=== PATIENT | male | born 1955 | race Caucasian/White ===

== ENCOUNTER 2018-05-31 12:08 | Inpatient (IN) | payer OTHER ==
[2018-05-31 15:09] VITALS: BMI 29.2
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
[2018-05-31] MEDS ORDERED: P-EPHED 60MG/TRIPROLIDI 2.5MG TABLET PO PRN (16:11)
[2018-05-31] MEDS ORDERED: IBUPROFEN 400 MG TABLET (FP) PO PRN (16:11)
[2018-05-31] MEDS ORDERED: guaiFENesin/D-METHORPHAN HB 10 ML UNIT-DOSE CUPS PO PRN (16:11)
[2018-05-31] MEDS ORDERED: MENTHOL/PHENOL 1 EACH UD MM PRN (16:11)
[2018-05-31] MEDS ORDERED: LOPERAMIDE HCL 2 MG CAPSULE PO PRN (16:11)
[2018-05-31] MEDS ORDERED: MAGNESIUM HYDROX 2400MG/30ML ORAL SUSPENSION 30 ML CUP PO PRN (16:11)
[2018-05-31] MEDS ORDERED: diazePAM 5 MG TABLET PO ONE (17:00)
[2018-05-31] MEDS ORDERED: METHADONE HCL 10 MG TABLET (FOR DETOX USE ONLY) PO ONE ×2 (17:15→23:00)
[2018-05-31] MEDS: metFORMIN HCL 500 MG TABLET (FP) PO SCH (17:29)
[2018-05-31] MEDS: ALBUTEROL SO4 8 GM HFA INHALER IH PRN ×2 (19:04→22:13)
[2018-05-31] MEDS ORDERED: MELATONIN 5 MG TABLETS PO PRN (22:00)
[2018-05-31] MEDS: diazePAM 5 MG TABLET PO SCH (22:10)
[2018-05-31] MEDS: THIAMINE HCL 100 MG TABLET (FP) PO SCH (22:10)
[2018-05-31] MEDS: ATORVASTATIN CA 40 MG TABLET (FP) PO SCH (22:11)
[2018-05-31] MEDS: cloNIDine HCL 0.1 MG TABLET PO SCH (22:11)
[2018-05-31] MEDS: RANITIDINE HCL 150 MG TABLET (FP) PO SCH (22:11)
[2018-05-31] MEDS: MONTELUKAST NA 10 MG TABLET PO SCH (22:51)
[2018-05-31] MEDS: MAG HYDROX/AL HYDROX/SIMETH 30 ML UNIT-DOSE CUP PO PRN (23:46)
[2018-06-01] MEDS: diazePAM 5 MG TABLET PO PRN ×3 (03:29→17:22)
[2018-06-01] MEDS: ALBUTEROL SO4 8 GM HFA INHALER IH PRN ×2 (03:36→21:57)
[2018-06-01] MEDS: diazePAM 5 MG TABLET PO SCH ×3 (05:50→21:58)
[2018-06-01] MEDS: metFORMIN HCL 500 MG TABLET (FP) PO SCH ×2 (06:30→17:22)
[2018-06-01] MEDS: PATIENT'S OWN MEDICATION (NON-FORMULARY) (Omeprazole 20 MG) PO SCH (07:47)
[2018-06-01] MEDS ORDERED: COLLOIDAL OATMEAL 1 BAR EACH TP PRN (08:09)
[2018-06-01] MEDS ORDERED: NICOTINE POLACRILEX 2 MG GUM BUC PRN (09:59)
[2018-06-01] MEDS ORDERED: METHADONE HCL 10 MG TABLET (FOR DETOX USE ONLY) PO SCH (10:00)
[2018-06-01] MEDS: PRENATAL VITAMINS W/ FOLIC ACID TABLET (FP) PO SCH (10:26)
[2018-06-01] MEDS: NICOTINE 14 MG/24 HOURS TOPICAL PATCH TD SCH (10:27)
[2018-06-01] MEDS: RANITIDINE HCL 150 MG TABLET (FP) PO SCH ×2 (10:29→21:58)
[2018-06-01] MEDS: cloNIDine HCL 0.1 MG TABLET PO SCH ×2 (10:30→21:58)
[2018-06-01 10:31] LABS: HEMATOCRIT 35.2 % (35.4-49); HEMOGLOBIN 11.6 GM/dL (11.7-16.9); MCH 30.2 pg (25.7-33.7); MEAN CELL VOLUME 91.5 fl (80-96); MEAN PLT VOLUME 7.3 fl (7.5-11.1); PLATELET COUNT 244 K/MM3 (134-434); RBC 3.85 M/mm3 (4.00-5.60); RDW 13.2 % (11.9-15.9); WHITE BLOOD COUNT 13.4 K/mm3 (4.0-10.0)
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
[2018-06-01 11:04] LABS: ALBUMIN 3.4 g/dl (3.4-5.0); ALK PHOS 39 U/L (45-117); ANION GAP 12 MMOL/L (8-16); BILIRUBIN,TOTAL 1.4 mg/dL (0.2-1); BLOOD UREA NITROGEN 13 mg/dL (7-18); CALCIUM 8.1 mg/dL (8.5-10.1); CHLORIDE 96 mmol/L (98-107); CO2 29 mmol/L (21-32); CREATININE 1.1 mg/dL (0.55-1.3); GLUCOSE,RANDOM 90 mg/dL (74-106); POTASSIUM 4.2 mmol/L (3.5-5.1); SGOT/AST 16 U/L (15-37); SGPT/ALT 20 U/L (13-61); SODIUM 136 mmol/L (136-145)
[2018-06-01] MEDS: DULoxetine HCL 20 MG CAPSULE.DR (FP) PO SCH (11:43)
[2018-06-01] MEDS: PATIENT'S OWN MEDICATION (NON-FORMULARY) (Losartan/Hydrochlorothiazide [Losartan-Hctz 100- PO SCH (12:12)
[2018-06-01] MEDS: GABAPENTIN 300 MG CAPSULE (FP) PO SCH ×2 (12:14→22:02)
[2018-06-01 13:17] LABS: URINE APPEARANCE SLCLOUDY; URINE BILIRUBIN NEGATIVE (<2.0 mg/dL); URINE COLOR YELLOW; URINE GLUCOSE (UA) NEGATIVE (NEGATIVE); URINE KETONE NEGATIVE (NEGATIVE); URINE LEUK ESTERASE NEGATIVE (NEGATIVE); URINE NITRITE NEGATIVE (NEGATIVE); URINE PROTEIN NEGATIVE (NEGATIVE); URINE UROBILINOGEN NEGATIVE mg/dL (0.2-1.0)
--- NOTE | 2018-06-01 14:43 | PN ---
[facility] CIWA - CIWA Score Nausea/Vomitin-No Nausea/No Vomiting Muscle Tremors: 3 Anxiety: 3 Agitation: 3 Paroxysmal Sweats: 2 Orientation: 0-Oriented Tacttile Disturbances: 1-Very Mild Itch/Numbness Auditory Disturbances: 0-None Visual Disturbances: 0-None Headache: 0-None Present CIWA-Ar Total Score: 12 [facility] COWS - Scale Resting Pulse: 1= [place] 81-100 Sweatin=Flushed/Facial Moisture Restless Observation: 1= Difficult to Sit Still Pupil Size: 1= Pupils >than Normal Bone or Joint Aches: 1= Mild Discomfort Runny Nose/ Eye Tearin= Runny Nose/Eyes GI Upset > 30mins: 0= None Tremor Observation of Outstretched Hands: 1= Tremor [place], Not Seen Yawning Observation: 1= 1-2x During Session Anxiety or Irritability: 2=Irritable/Anxious Goose Flesh Skin: 0=Smooth Skin COWS Score: 12 S Progress Note (SOAP) Subjective: interrupted sleep, anxious, body aches Objective: 06/01/18 14:41 Vital Signs Temperature 100.0 F H 06/01/18 14:06 Pulse Rate 91 H 06/01/18 14:06 Respiratory Rate 18 06/01/18 14:06 Blood Pressure 125/74 06/01/18 14:06 O2 Sat by Pulse Oximetry (%) Laboratory Last Values WBC 13.4 K/mm3 (4.0-10.0) H 06/01/18 08:00 RBC 3.85 M/mm3 (4.00-5.60) L 06/01/18 08:00 Hgb 11.6 GM/dL (11.7-16.9) L 06/01/18 08:00 Hct 35.2 % (35.4-49) L 06/01/18 08:00 MCV 91.5 fl (80-96) 06/01/18 08:00 MCH 30.2 pg (25.7-33.7) 06/01/18 08:00 MCHC 33.0 g/dl (32.0-35.9) 06/01/18 08:00 RDW 13.2 % (11.9-15.9) 06/01/18 08:00 Plt Count 244 K/MM3 (134-434) 06/01/18 08:00 MPV 7.3 fl (7.5-11.1) L 06/01/18 08:00 Sodium 136 mmol/L (136-145) 06/01/18 08:00 Potassium 4.2 mmol/L (3.5-5.1) 06/01/18 08:00 Chloride 96 mmol/L (98-107) L 06/01/18 08:00 Carbon Dioxide 29 mmol/L (21-32) 06/01/18 08:00 Anion Gap 12 MMOL/L (8-16) 06/01/18 08:00 BUN 13 mg/dL (7-18) 06/01/18 08:00 Creatinine 1.1 mg/dL (0.55-1.3) 06/01/18 08:00 Creat Clearance w eGFR > 60 (>60) 06/01/18 08:00 POC Glucometer 116 UNITS (80-120) 06/01/18 05:52 Random Glucose 90 mg/dL (74-106) 06/01/18 08:00 Calcium 8.1 mg/dL (8.5-10.1) L 06/01/18 08:00 Total Bilirubin 1.4 mg/dL (0.2-1) H 06/01/18 08:00 AST 16 U/L (15-37) 06/01/18 08:00 ALT 20 U/L (13-61) 06/01/18 08:00 Alkaline Phosphatase 39 U/L (45-117) L 06/01/18 08:00 Total Protein 6.0 g/dl (6.4-8.2) L 06/01/18 08:00 Albumin 3.4 g/dl (3.4-5.0) 06/01/18 08:00 Urine Color Yellow 06/01/18 09:30 Urine Appearance Slcloudy 06/01/18 09:30 Urine pH 7.0 (5.0-8.0) 06/01/18 09:30 Ur Specific [place] 1.015 (1.010-1.035) 06/01/18 09:30 Urine Protein Negative (NEGATIVE) 06/01/18 09:30 Urine Glucose (UA) Negative (NEGATIVE) 06/01/18 09:30 Urine Ketones Negative (NEGATIVE) 06/01/18 09:30 Urine Blood Negative (NEGATIVE) 06/01/18 09:30 Urine Nitrite Negative (NEGATIVE) 06/01/18 09:30 Urine Bilirubin Negative (<2.0 mg/dL) 06/01/18 09:30 Urine Urobilinogen Negative mg/dL (0.2-1.0) 06/01/18 09:30 Ur Leukocyte Esterase Negative (NEGATIVE) 06/01/18 09:30 RPR Titer Nonreactive (NONREACTIVE) 06/01/18 08:00 repeat CBC Patient Aox3 no distress, anxious no adventitious breath sounds full ROM, ambulating in the unit Assessment: 06/01/18 14:42 withdrawal sx Plan: repeat CBC increase fluids continue detox continue to monitor
--- NOTE | 2018-06-01 14:46 | EKG ---
Test Reason : Blood Pressure : / mmHG Vent. Rate : 082 BPM Atrial Rate : 082 BPM P-R Int : 146 ms QRS Dur : 090 ms QT Int : 378 ms P-R-T Axes : 000 048 025 degrees QTc Int : 441 ms NORMAL SINUS RHYTHM NORMAL ECG NO PREVIOUS ECGS AVAILABLE Confirmed by MD Melani, Ravi ([id number]) on 06/01/2018 2:46:42 PM Referred By: Confirmed By:Ravi Polo MD
[2018-06-01] MEDS: MONTELUKAST NA 10 MG TABLET PO SCH (21:59)
[2018-06-01] MEDS: ATORVASTATIN CA 40 MG TABLET (FP) PO SCH (21:59)
[2018-06-01] MEDS ORDERED: PARoxetine HCL 20 MG TABLET (FP) PO SCH (22:00)
[2018-06-01] MEDS: ZOLPIDEM TARTRATE 10 MG TABLET (PARK CARE ONLY) PO PRN (22:02)
[2018-06-01] MEDS: THIAMINE HCL 100 MG TABLET (FP) PO SCH (22:50)
[2018-06-02] MEDS: diazePAM 5 MG TABLET PO PRN ×2 (03:53→17:42)
[2018-06-02] MEDS: MAGNESIUM CITRATE 300 ML BOTTLE PO PRN (05:54)
[2018-06-02] MEDS: metFORMIN HCL 500 MG TABLET (FP) PO SCH ×2 (06:23→16:30)
[2018-06-02] MEDS: PATIENT'S OWN MEDICATION (NON-FORMULARY) (Omeprazole 20 MG) PO SCH (06:43)
[2018-06-02] MEDS: METHADONE HCL 5 MG TABLET (FOR DETOX USE ONLY) PO SCH (10:17)
[2018-06-02] MEDS: GABAPENTIN 300 MG CAPSULE (FP) PO SCH ×2 (10:17→22:00)
[2018-06-02] MEDS: PRENATAL VITAMINS W/ FOLIC ACID TABLET (FP) PO SCH (10:17)
[2018-06-02] MEDS: PATIENT'S OWN MEDICATION (NON-FORMULARY) (Losartan/Hydrochlorothiazide [Losartan-Hctz 100- PO SCH (10:17)
[2018-06-02] MEDS: RANITIDINE HCL 150 MG TABLET (FP) PO SCH ×2 (10:17→21:59)
[2018-06-02] MEDS: DULoxetine HCL 20 MG CAPSULE.DR (FP) PO SCH (10:17)
[2018-06-02] MEDS: diazePAM 5 MG TABLET PO SCH ×2 (10:17→22:00)
[2018-06-02] MEDS: NICOTINE 14 MG/24 HOURS TOPICAL PATCH TD SCH (10:21)
[2018-06-02] MEDS: cloNIDine HCL 0.1 MG TABLET PO SCH ×2 (10:21→22:00)
[2018-06-02 10:34] LABS: BASO % 0.6 % (0-2.0); EOS % 1.3 % (0-4.5); HEMATOCRIT 35.4 % (35.4-49); HEMOGLOBIN 11.5 GM/dL (11.7-16.9); LYMPH % 8.3 % (8-40); MCH 29.5 pg (25.7-33.7); MCHC 32.4 g/dl (32.0-35.9); MEAN CELL VOLUME 91.1 fl (80-96); MEAN PLT VOLUME 7.4 fl (7.5-11.1); MONO % 6.1 % (3.8-10.2); NEUT % 83.7 % (42.8-82.8); PLATELET COUNT 242 K/MM3 (134-434); RBC 3.89 M/mm3 (4.00-5.60); RDW 13.1 % (11.9-15.9); WHITE BLOOD COUNT 13.5 K/mm3 (4.0-10.0)
--- NOTE | 2018-06-02 16:19 | PN ---
[facility] CIWA - CIWA Score Nausea/Vomitin Muscle Tremors: 3 Anxiety: 3 Agitation: 3 Paroxysmal Sweats: 3 Orientation: 0-Oriented Tacttile Disturbances: 0-None Auditory Disturbances: 0-None Visual Disturbances: 0-None Headache: 0-None Present CIWA-Ar Total Score: 14 [facility] COWS - Scale Resting Pulse: 1= [place] 81-100 Sweatin= Chills/Flushing Restless Observation: 3= Extraneous Movement Pupil Size: 0= Normal to Room Light Bone or Joint Aches: 2= Severe Diffuse Aches Runny Nose/ Eye Tearin= Runny Nose/Eyes GI Upset > 30mins: 2= Nausea/Diarrhea Tremor Observation of Outstretched Hands: 2= Slight Tremor Visible Yawning Observation: 0= None Anxiety or Irritability: 2=Irritable/Anxious Goose Flesh Skin: 0=Smooth Skin COWS Score: 15 [facility] Progress Note (SOAP) Subjective: Tremor, chills, diarrhea, headache, interrupted sleep Objective: 06/02/18 16:15 Last Vital Signs Temp Pulse Resp BP Pulse Ox 97.9 F 97 H 18 122/73 06/02/18 14:16 06/02/18 14:16 06/02/18 14:16 06/02/18 14:16 Laboratory Tests 05/31/18 05/31/18 06/01/18 16:21 17:23 05:52 WBC RBC Hgb Hct MCV MCH MCHC RDW Plt Count MPV Absolute Neuts (auto) Neutrophils % Lymphocytes % Monocytes % Eosinophils % Basophils % Nucleated RBC % Sodium Potassium Chloride Carbon Dioxide Anion Gap BUN Creatinine Creat Clearance w eGFR POC Glucometer 118 129 116 Random Glucose Calcium Total Bilirubin AST ALT Alkaline Phosphatase Total Protein Albumin Urine Color Urine Appearance Urine pH Ur Specific [place] Urine Protein Urine Glucose (UA) Urine Ketones Urine Blood Urine Nitrite Urine Bilirubin Urine Urobilinogen Ur Leukocyte Esterase RPR Titer 06/01/18 06/01/18 06/01/18 08:00 08:00 08:00 WBC 13.4 H RBC 3.85 L Hgb 11.6 L Hct 35.2 L MCV 91.5 MCH 30.2 MCHC 33.0 RDW 13.2 Plt Count 244 MPV 7.3 L Absolute Neuts (auto) Neutrophils % Lymphocytes % Monocytes % Eosinophils % Basophils % Nucleated RBC % Sodium 136 Potassium 4.2 Chloride 96 L Carbon Dioxide 29 Anion Gap 12 BUN 13 Creatinine 1.1 Creat Clearance w eGFR > 60 POC Glucometer Random Glucose 90 Calcium 8.1 L Total Bilirubin 1.4 H AST 16 ALT 20 Alkaline Phosphatase 39 L Total Protein 6.0 L Albumin 3.4 Urine Color Urine Appearance Urine pH Ur Specific [place] Urine Protein Urine Glucose (UA) Urine Ketones Urine Blood Urine Nitrite Urine Bilirubin Urine Urobilinogen Ur Leukocyte Esterase RPR Titer Nonreactive 06/01/18 06/01/18 06/02/18 09:30 16:24 05:46 WBC RBC Hgb Hct MCV MCH MCHC RDW Plt Count MPV Absolute Neuts (auto) Neutrophils % Lymphocytes % Monocytes % Eosinophils % Basophils % Nucleated RBC % Sodium Potassium Chloride Carbon Dioxide Anion Gap BUN Creatinine Creat Clearance w eGFR POC Glucometer 110 109 Random Glucose Calcium Total Bilirubin AST ALT Alkaline Phosphatase Total Protein Albumin Urine Color Yellow Urine Appearance Slcloudy Urine pH 7.0 Ur Specific [place] 1.015 Urine Protein Negative Urine Glucose (UA) Negative Urine Ketones Negative Urine Blood Negative Urine Nitrite Negative Urine Bilirubin Negative Urine Urobilinogen Negative Ur Leukocyte Esterase Negative RPR Titer 06/02/18 07:35 WBC 13.5 H RBC 3.89 L Hgb 11.5 L Hct 35.4 MCV 91.1 MCH 29.5 MCHC 32.4 RDW 13.1 Plt Count 242 MPV 7.4 L Absolute Neuts (auto) 11.3 H Neutrophils % 83.7 H Lymphocytes % 8.3 Monocytes % 6.1 Eosinophils % 1.3 Basophils % 0.6 Nucleated RBC % 0 Sodium Potassium Chloride Carbon Dioxide Anion Gap BUN Creatinine Creat Clearance w eGFR POC Glucometer Random Glucose Calcium Total Bilirubin AST ALT Alkaline Phosphatase Total Protein Albumin Urine Color Urine Appearance Urine pH Ur Specific [place] Urine Protein Urine Glucose (UA) Urine Ketones Urine Blood Urine Nitrite Urine Bilirubin Urine Urobilinogen Ur Leukocyte Esterase RPR Titer Labs reviewed: wbc 13.5 (was 13.4), total bilirubin 1.4 Assessment: 06/02/18 16:17 Withdrawal symptoms Noted with leukocytosis and elevated total bilirubin Plan: Continue detox Leukocytosis: asymptomatic, could be related to lung mass; repeat CBC, send urine c&s Elevated total bilirubin: repeat total bilirubin serum
[2018-06-02] MEDS: ACETAMINOPHEN 325 MG TABLET (FP) PO PRN (17:42)
[2018-06-02] MEDS: THIAMINE HCL 100 MG TABLET (FP) PO SCH (21:58)
[2018-06-02] MEDS: ALBUTEROL SO4 8 GM HFA INHALER IH PRN (21:58)
[2018-06-02] MEDS: MONTELUKAST NA 10 MG TABLET PO SCH (21:58)
[2018-06-02] MEDS: ATORVASTATIN CA 40 MG TABLET (FP) PO SCH (21:59)
[2018-06-02] MEDS: ZOLPIDEM TARTRATE 10 MG TABLET (PARK CARE ONLY) PO PRN (22:01)
[2018-06-03] MEDS: diazePAM 5 MG TABLET PO PRN ×2 (05:21→16:00)
[2018-06-03] MEDS: metFORMIN HCL 500 MG TABLET (FP) PO SCH ×2 (06:27→17:37)
[2018-06-03] MEDS: PATIENT'S OWN MEDICATION (NON-FORMULARY) (Omeprazole 20 MG) PO SCH (06:28)
[2018-06-03] MEDS: ALBUTEROL SO4 8 GM HFA INHALER IH PRN ×2 (09:56→22:08)
[2018-06-03] MEDS: METHADONE HCL 5 MG TABLET (FOR DETOX USE ONLY) PO SCH (10:23)
[2018-06-03] MEDS: diazePAM 5 MG TABLET PO SCH ×2 (10:24→22:02)
[2018-06-03] MEDS: GABAPENTIN 300 MG CAPSULE (FP) PO SCH ×2 (10:24→22:01)
[2018-06-03] MEDS: DULoxetine HCL 20 MG CAPSULE.DR (FP) PO SCH (10:25)
[2018-06-03] MEDS: cloNIDine HCL 0.1 MG TABLET PO SCH ×2 (10:25→22:01)
[2018-06-03] MEDS: PRENATAL VITAMINS W/ FOLIC ACID TABLET (FP) PO SCH (10:25)
[2018-06-03] MEDS: RANITIDINE HCL 150 MG TABLET (FP) PO SCH ×2 (10:25→22:02)
[2018-06-03] MEDS: PATIENT'S OWN MEDICATION (NON-FORMULARY) (Losartan/Hydrochlorothiazide [Losartan-Hctz 100- PO SCH (10:26)
[2018-06-03] MEDS: NICOTINE 14 MG/24 HOURS TOPICAL PATCH TD SCH (10:28)
[2018-06-03 14:23] LABS: BASO % 0.8 % (0-2.0); EOS % 1.7 % (0-4.5); HEMATOCRIT 33.8 % (35.4-49); LYMPH % 10.1 % (8-40); MCH 30.2 pg (25.7-33.7); MCHC 32.6 g/dl (32.0-35.9); MEAN CELL VOLUME 92.8 fl (80-96); MEAN PLT VOLUME 7.5 fl (7.5-11.1); MONO % 6.9 % (3.8-10.2); NEUT % 80.5 % (42.8-82.8); PLATELET COUNT 255 K/MM3 (134-434); RBC 3.64 M/mm3 (4.00-5.60); RDW 13.2 % (11.9-15.9); WHITE BLOOD COUNT 8.8 K/mm3 (4.0-10.0)
--- NOTE | 2018-06-03 14:23 | PN ---
[facility] Progress Note (SOAP) Subjective: Anxious, sweating, interrupted sleep. Patient requesting to stay longer on detox stating he wants to continue methadone. Patient aware that methadone protocol cannot be extended and service writer advisor encouraged him to speak with his counselor regarding inpatient rehab admission after completion of detox. Patient demanded that service writer advisor called his insurance company to request detox extension so that he can continue methadone. Patient told staff he coughed up phlegm which has scant amount of blood in it. Patient with h/o lung mass, asthma , chronic bronchitis and COPD. Objective: 06/03/18 14:22 Last Vital Signs Temp Pulse Resp BP Pulse Ox 96.9 F L 68 18 118/72 06/03/18 13:36 06/03/18 13:36 06/03/18 13:36 06/03/18 13:36 Laboratory Tests 05/31/18 05/31/18 06/01/18 16:21 17:23 05:52 WBC RBC Hgb Hct MCV MCH MCHC RDW Plt Count MPV Absolute Neuts (auto) Neutrophils % Lymphocytes % Monocytes % Eosinophils % Basophils % Nucleated RBC % Sodium Potassium Chloride Carbon Dioxide Anion Gap BUN Creatinine Creat Clearance w eGFR POC Glucometer 118 129 116 Random Glucose Calcium Total Bilirubin AST ALT Alkaline Phosphatase Total Protein Albumin Urine Color Urine Appearance Urine pH Ur Specific [place] Urine Protein Urine Glucose (UA) Urine Ketones Urine Blood Urine Nitrite Urine Bilirubin Urine Urobilinogen Ur Leukocyte Esterase RPR Titer 06/01/18 06/01/18 06/01/18 08:00 08:00 08:00 WBC 13.4 H RBC 3.85 L Hgb 11.6 L Hct 35.2 L MCV 91.5 MCH 30.2 MCHC 33.0 RDW 13.2 Plt Count 244 MPV 7.3 L Absolute Neuts (auto) Neutrophils % Lymphocytes % Monocytes % Eosinophils % Basophils % Nucleated RBC % Sodium 136 Potassium 4.2 Chloride 96 L Carbon Dioxide 29 Anion Gap 12 BUN 13 Creatinine 1.1 Creat Clearance w eGFR > 60 POC Glucometer Random Glucose 90 Calcium 8.1 L Total Bilirubin 1.4 H AST 16 ALT 20 Alkaline Phosphatase 39 L Total Protein 6.0 L Albumin 3.4 Urine Color Urine Appearance Urine pH Ur Specific [place] Urine Protein Urine Glucose (UA) Urine Ketones Urine Blood Urine Nitrite Urine Bilirubin Urine Urobilinogen Ur Leukocyte Esterase RPR Titer Nonreactive 06/01/18 06/01/18 06/02/18 09:30 16:24 05:46 WBC RBC Hgb Hct MCV MCH MCHC RDW Plt Count MPV Absolute Neuts (auto) Neutrophils % Lymphocytes % Monocytes % Eosinophils % Basophils % Nucleated RBC % Sodium Potassium Chloride Carbon Dioxide Anion Gap BUN Creatinine Creat Clearance w eGFR POC Glucometer 110 109 Random Glucose Calcium Total Bilirubin AST ALT Alkaline Phosphatase Total Protein Albumin Urine Color Yellow Urine Appearance Slcloudy Urine pH 7.0 Ur Specific [place] 1.015 Urine Protein Negative Urine Glucose (UA) Negative Urine Ketones Negative Urine Blood Negative Urine Nitrite Negative Urine Bilirubin Negative Urine Urobilinogen Negative Ur Leukocyte Esterase Negative RPR Titer 06/02/18 06/02/18 06/03/18 07:35 16:15 05:18 WBC 13.5 H RBC 3.89 L Hgb 11.5 L Hct 35.4 MCV 91.1 MCH 29.5 MCHC 32.4 RDW 13.1 Plt Count 242 MPV 7.4 L Absolute Neuts (auto) 11.3 H Neutrophils % 83.7 H Lymphocytes % 8.3 Monocytes % 6.1 Eosinophils % 1.3 Basophils % 0.6 Nucleated RBC % 0 Sodium Potassium Chloride Carbon Dioxide Anion Gap BUN Creatinine Creat Clearance w eGFR POC Glucometer 152 200 Random Glucose Calcium Total Bilirubin AST ALT Alkaline Phosphatase Total Protein Albumin Urine Color Urine Appearance Urine pH Ur Specific [place] Urine Protein Urine Glucose (UA) Urine Ketones Urine Blood Urine Nitrite Urine Bilirubin Urine Urobilinogen Ur Leukocyte Esterase RPR Titer Labs reviewed: Assessment: 06/03/18 14:22 Withdrawal symptoms Noted with leukocytosis and increased total bilirubin Plan: Continue detox Encouraged PO water intake Consider MMTP upon discharge as patient craves methadone Leukocytosis: asymptomatic; could be related to lung mass; repeat in progress, urine cx in progress Increased total bilirubin: repeat in progress Patient c/o blood tinged phlegm after coughing up phlegm: chest xray in AM
[2018-06-03] MEDS: ACETAMINOPHEN 325 MG TABLET (FP) PO PRN (19:44)
[2018-06-03] MEDS: MAG HYDROX/AL HYDROX/SIMETH 30 ML UNIT-DOSE CUP PO PRN (19:46)
[2018-06-03] MEDS ORDERED: ALBUTEROL SO4 2.5/IPRATROPIUM 0.5 INH SOL 3 ML VIAL.NEB. NEB ONE (21:05)
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
[2018-06-03] MEDS: THIAMINE HCL 100 MG TABLET (FP) PO SCH (22:02)
[2018-06-03] MEDS: ATORVASTATIN CA 40 MG TABLET (FP) PO SCH (22:02)
[2018-06-03] MEDS: ZOLPIDEM TARTRATE 10 MG TABLET (PARK CARE ONLY) PO PRN (22:02)
[2018-06-03] MEDS: MONTELUKAST NA 10 MG TABLET PO SCH (22:02)
[2018-06-03] MEDS: guaiFENesin 600 MG TABLET.ER (FP) PO SCH (23:35)
[2018-06-04] MEDS: ALBUTEROL SO4 8 GM HFA INHALER IH PRN (03:34)
[2018-06-04] MEDS ORDERED: hydrOXYzine PAMOATE 25 MG CAPSULE (FP) PO ONE (05:58)
[2018-06-04] MEDS: PATIENT'S OWN MEDICATION (NON-FORMULARY) (Omeprazole 20 MG) PO SCH (06:07)
[2018-06-04] MEDS: metFORMIN HCL 500 MG TABLET (FP) PO SCH ×2 (06:08→17:01)
[2018-06-04] MEDS: ALBUTEROL SO4 2.5/IPRATROPIUM 0.5 INH SOL 3 ML VIAL.NEB. NEB SCH ×4 (08:30→19:30)
[2018-06-04] MEDS ORDERED: METHADONE HCL 10 MG TABLET (FOR DETOX USE ONLY) PO SCH (10:00)
[2018-06-04] MEDS ORDERED: diazePAM 5 MG TABLET PO SCH (10:00)
[2018-06-04] MEDS: DULoxetine HCL 20 MG CAPSULE.DR (FP) PO SCH (10:17)
[2018-06-04] MEDS: RANITIDINE HCL 150 MG TABLET (FP) PO SCH ×2 (10:17→21:05)
[2018-06-04] MEDS: GABAPENTIN 300 MG CAPSULE (FP) PO SCH ×2 (10:17→21:04)
[2018-06-04] MEDS: guaiFENesin 600 MG TABLET.ER (FP) PO SCH ×2 (10:18→21:05)
[2018-06-04] MEDS: cloNIDine HCL 0.1 MG TABLET PO SCH ×2 (10:18→21:04)
[2018-06-04] MEDS: NICOTINE 14 MG/24 HOURS TOPICAL PATCH TD SCH (10:18)
[2018-06-04] MEDS: PATIENT'S OWN MEDICATION (NON-FORMULARY) (Losartan/Hydrochlorothiazide [Losartan-Hctz 100- PO SCH (10:18)
[2018-06-04] MEDS: PRENATAL VITAMINS W/ FOLIC ACID TABLET (FP) PO SCH (10:19)
[2018-06-04] MEDS: MAGNESIUM CITRATE 300 ML BOTTLE PO PRN (12:07)
--- NOTE | 2018-06-04 13:01 | PN ---
[facility] Progress Note (SOAP) Subjective: Anxious Objective: 06/04/18 12:56 Last Vital Signs Temp Pulse Resp BP Pulse Ox 99.4 F 76 18 137/85 06/04/18 09:08 06/04/18 09:08 06/04/18 09:08 06/04/18 09:08 Laboratory Tests 05/31/18 05/31/18 06/01/18 16:21 17:23 05:52 WBC RBC Hgb Hct MCV MCH MCHC RDW Plt Count MPV Absolute Neuts (auto) Neutrophils % Lymphocytes % Monocytes % Eosinophils % Basophils % Nucleated RBC % Sodium Potassium Chloride Carbon Dioxide Anion Gap BUN Creatinine Creat Clearance w eGFR POC Glucometer 118 129 116 Random Glucose Calcium Total Bilirubin AST ALT Alkaline Phosphatase Total Protein Albumin Urine Color Urine Appearance Urine pH Ur Specific [place] Urine Protein Urine Glucose (UA) Urine Ketones Urine Blood Urine Nitrite Urine Bilirubin Urine Urobilinogen Ur Leukocyte Esterase RPR Titer 06/01/18 06/01/18 06/01/18 08:00 08:00 08:00 WBC 13.4 H RBC 3.85 L Hgb 11.6 L Hct 35.2 L MCV 91.5 MCH 30.2 MCHC 33.0 RDW 13.2 Plt Count 244 MPV 7.3 L Absolute Neuts (auto) Neutrophils % Lymphocytes % Monocytes % Eosinophils % Basophils % Nucleated RBC % Sodium 136 Potassium 4.2 Chloride 96 L Carbon Dioxide 29 Anion Gap 12 BUN 13 Creatinine 1.1 Creat Clearance w eGFR > 60 POC Glucometer Random Glucose 90 Calcium 8.1 L Total Bilirubin 1.4 H AST 16 ALT 20 Alkaline Phosphatase 39 L Total Protein 6.0 L Albumin 3.4 Urine Color Urine Appearance Urine pH Ur Specific [place] Urine Protein Urine Glucose (UA) Urine Ketones Urine Blood Urine Nitrite Urine Bilirubin Urine Urobilinogen Ur Leukocyte Esterase RPR Titer Nonreactive 06/01/18 06/01/18 06/02/18 09:30 16:24 05:46 WBC RBC Hgb Hct MCV MCH MCHC RDW Plt Count MPV Absolute Neuts (auto) Neutrophils % Lymphocytes % Monocytes % Eosinophils % Basophils % Nucleated RBC % Sodium Potassium Chloride Carbon Dioxide Anion Gap BUN Creatinine Creat Clearance w eGFR POC Glucometer 110 109 Random Glucose Calcium Total Bilirubin AST ALT Alkaline Phosphatase Total Protein Albumin Urine Color Yellow Urine Appearance Slcloudy Urine pH 7.0 Ur Specific [place] 1.015 Urine Protein Negative Urine Glucose (UA) Negative Urine Ketones Negative Urine Blood Negative Urine Nitrite Negative Urine Bilirubin Negative Urine Urobilinogen Negative Ur Leukocyte Esterase Negative RPR Titer 06/02/18 06/02/18 06/03/18 07:35 16:15 05:18 WBC 13.5 H RBC 3.89 L Hgb 11.5 L Hct 35.4 MCV 91.1 MCH 29.5 MCHC 32.4 RDW 13.1 Plt Count 242 MPV 7.4 L Absolute Neuts (auto) 11.3 H Neutrophils % 83.7 H Lymphocytes % 8.3 Monocytes % 6.1 Eosinophils % 1.3 Basophils % 0.6 Nucleated RBC % 0 Sodium Potassium Chloride Carbon Dioxide Anion Gap BUN Creatinine Creat Clearance w eGFR POC Glucometer 152 200 Random Glucose Calcium Total Bilirubin AST ALT Alkaline Phosphatase Total Protein Albumin Urine Color Urine Appearance Urine pH Ur Specific [place] Urine Protein Urine Glucose (UA) Urine Ketones Urine Blood Urine Nitrite Urine Bilirubin Urine Urobilinogen Ur Leukocyte Esterase RPR Titer 06/03/18 06/03/18 06/03/18 08:50 08:50 16:39 WBC 8.8 RBC 3.64 L Hgb 11.0 L Hct 33.8 L MCV 92.8 MCH 30.2 MCHC 32.6 RDW 13.2 Plt Count 255 MPV 7.5 Absolute Neuts (auto) 7.1 Neutrophils % 80.5 Lymphocytes % 10.1 D Monocytes % 6.9 Eosinophils % 1.7 Basophils % 0.8 Nucleated RBC % 0 Sodium Potassium Chloride Carbon Dioxide Anion Gap BUN Creatinine Creat Clearance w eGFR POC Glucometer 126 Random Glucose Calcium Total Bilirubin 0.6 AST ALT Alkaline Phosphatase Total Protein Albumin Urine Color Urine Appearance Urine pH Ur Specific [place] Urine Protein Urine Glucose (UA) Urine Ketones Urine Blood Urine Nitrite Urine Bilirubin Urine Urobilinogen Ur Leukocyte Esterase RPR Titer 06/04/18 05:52 WBC RBC Hgb Hct MCV MCH MCHC RDW Plt Count MPV Absolute Neuts (auto) Neutrophils % Lymphocytes % Monocytes % Eosinophils % Basophils % Nucleated RBC % Sodium Potassium Chloride Carbon Dioxide Anion Gap BUN Creatinine Creat Clearance w eGFR POC Glucometer 114 Random Glucose Calcium Total Bilirubin AST ALT Alkaline Phosphatase Total Protein Albumin Urine Color Urine Appearance Urine pH Ur Specific [place] Urine Protein Urine Glucose (UA) Urine Ketones Urine Blood Urine Nitrite Urine Bilirubin Urine Urobilinogen Ur Leukocyte Esterase RPR Titer Labs reviewed C-xray on 06/04/18: elevated right hemidiaphragm with right base atelectasis/ infiltrate. Patient is already on levaquin 500mg PO daily x 10 days. Assessment: 06/04/18 12:59 Withdrawal symptoms Noted with PNA as per chest xray Plan: Continue detox Encouraged PO water intake PNA: continue levaquin, continue mdi/present regimen, follow up with your PCP post discharge. Patient is for discharge tomorrow. He shows interest in [facility] and advised to speak with his counselor.
[2018-06-04] MEDS: ACETAMINOPHEN 325 MG TABLET (FP) PO PRN (17:01)
[2018-06-04] MEDS: ATORVASTATIN CA 40 MG TABLET (FP) PO SCH (21:05)
[2018-06-04] MEDS: MONTELUKAST NA 10 MG TABLET PO SCH (21:05)
[2018-06-04] MEDS: THIAMINE HCL 100 MG TABLET (FP) PO SCH (21:05)
--- NOTE | 2018-06-04 21:26 | PN ---
[facility] Progress Note Note: Psychiatry Attending's on-call note : Nurse called for order of zolpidem. Patient's request. Met earlier with Mr ArtisYolanda. Briefly. Did endorse insomnia. Medication confirmed. Risk of parasomnias : already discussed with the patient. Ambien 5 mg po hs. Resumed. Order entered. Will follow.
[2018-06-04] MEDS: ZOLPIDEM TARTRATE 5 MG TABLET PO PRN (21:33)
[2018-06-04] MEDS: guaiFENesin/D-METHORPHAN HB 10 ML UNIT-DOSE CUPS PO PRN (21:33)
[2018-06-05] MEDS: ALBUTEROL SO4 8 GM HFA INHALER IH PRN ×5 (01:42→23:30)
[2018-06-05] MEDS: guaiFENesin/D-METHORPHAN HB 10 ML UNIT-DOSE CUPS PO PRN ×3 (05:51→23:30)
[2018-06-05] MEDS ORDERED: METHADONE HCL 5 MG TABLET (FOR DETOX USE ONLY) PO SCH (06:00)
[2018-06-05] MEDS: PATIENT'S OWN MEDICATION (NON-FORMULARY) (Omeprazole 20 MG) PO SCH (07:37)
[2018-06-05] MEDS: metFORMIN HCL 500 MG TABLET (FP) PO SCH ×2 (07:37→16:58)
[2018-06-05] MEDS: ALBUTEROL SO4 2.5/IPRATROPIUM 0.5 INH SOL 3 ML VIAL.NEB. NEB SCH (07:38)
[2018-06-05] MEDS: PRENATAL VITAMINS W/ FOLIC ACID TABLET (FP) PO SCH (10:12)
[2018-06-05] MEDS: GABAPENTIN 300 MG CAPSULE (FP) PO SCH ×2 (10:12→21:27)
[2018-06-05] MEDS: cloNIDine HCL 0.1 MG TABLET PO SCH ×2 (10:13→21:26)
[2018-06-05] MEDS: PATIENT'S OWN MEDICATION (NON-FORMULARY) (Losartan/Hydrochlorothiazide [Losartan-Hctz 100- PO SCH (10:14)
[2018-06-05] MEDS: DULoxetine HCL 20 MG CAPSULE.DR (FP) PO SCH (10:14)
[2018-06-05] MEDS: NICOTINE 14 MG/24 HOURS TOPICAL PATCH TD SCH (10:15)
[2018-06-05] MEDS: RANITIDINE HCL 150 MG TABLET (FP) PO SCH ×2 (10:15→21:26)
--- NOTE | 2018-06-05 10:57 | DS ---
[facility] Detox Discharge Summary Admission Date: 05/31/18 Discharge Date: 06/05/18 - History Present History: Opioid Dependence, Sedative Dependence Additional Comments: Patient instructed to follow up with his PCP after completion of rehab. Patient dx with PNA, on levaquin 500mg PO daily for total of 10 days. As per patient, he had PNA a few times in the past. He is concerned about being tapered off methadone and believes he may need more methadone. Patient aware that once his methadone taper ends, he will not receive anymore methadone. Patient agreed to have vistaril prn and to continue his standing clonidine. He plans on completing rehab. Pertinent Past History: Asthma GERD COPD LBP HLD DMT2 HTN Opioid dependence Sedative dependence History of Pneumonia - Physical Exam Results Vital Signs: Vital Signs Temperature 96.2 F L 06/05/18 09:06 Pulse Rate 74 06/05/18 09:06 Respiratory Rate 18 06/05/18 09:06 Blood Pressure 125/59 L 06/05/18 09:06 O2 Sat by Pulse Oximetry (%) Pertinent Admission Physical Exam Findings: Withdrawal symptoms Laboratory Tests 05/31/18 05/31/18 06/01/18 16:21 17:23 05:52 WBC RBC Hgb Hct MCV MCH MCHC RDW Plt Count MPV Absolute Neuts (auto) Neutrophils % Lymphocytes % Monocytes % Eosinophils % Basophils % Nucleated RBC % Sodium Potassium Chloride Carbon Dioxide Anion Gap BUN Creatinine Creat Clearance w eGFR POC Glucometer 118 129 116 Random Glucose Calcium Total Bilirubin AST ALT Alkaline Phosphatase Total Protein Albumin Urine Color Urine Appearance Urine pH Ur Specific [place] Urine Protein Urine Glucose (UA) Urine Ketones Urine Blood Urine Nitrite Urine Bilirubin Urine Urobilinogen Ur Leukocyte Esterase RPR Titer 06/01/18 06/01/18 06/01/18 08:00 08:00 08:00 WBC 13.4 H RBC 3.85 L Hgb 11.6 L Hct 35.2 L MCV 91.5 MCH 30.2 MCHC 33.0 RDW 13.2 Plt Count 244 MPV 7.3 L Absolute Neuts (auto) Neutrophils % Lymphocytes % Monocytes % Eosinophils % Basophils % Nucleated RBC % Sodium 136 Potassium 4.2 Chloride 96 L Carbon Dioxide 29 Anion Gap 12 BUN 13 Creatinine 1.1 Creat Clearance w eGFR > 60 POC Glucometer Random Glucose 90 Calcium 8.1 L Total Bilirubin 1.4 H AST 16 ALT 20 Alkaline Phosphatase 39 L Total Protein 6.0 L Albumin 3.4 Urine Color Urine Appearance Urine pH Ur Specific [place] Urine Protein Urine Glucose (UA) Urine Ketones Urine Blood Urine Nitrite Urine Bilirubin Urine Urobilinogen Ur Leukocyte Esterase RPR Titer Nonreactive 06/01/18 06/01/18 06/02/18 09:30 16:24 05:46 WBC RBC Hgb Hct MCV MCH MCHC RDW Plt Count MPV Absolute Neuts (auto) Neutrophils % Lymphocytes % Monocytes % Eosinophils % Basophils % Nucleated RBC % Sodium Potassium Chloride Carbon Dioxide Anion Gap BUN Creatinine Creat Clearance w eGFR POC Glucometer 110 109 Random Glucose Calcium Total Bilirubin AST ALT Alkaline Phosphatase Total Protein Albumin Urine Color Yellow Urine Appearance Slcloudy Urine pH 7.0 Ur Specific [place] 1.015 Urine Protein Negative Urine Glucose (UA) Negative Urine Ketones Negative Urine Blood Negative Urine Nitrite Negative Urine Bilirubin Negative Urine Urobilinogen Negative Ur Leukocyte Esterase Negative RPR Titer 06/02/18 06/02/18 06/03/18 07:35 16:15 05:18 WBC 13.5 H RBC 3.89 L Hgb 11.5 L Hct 35.4 MCV 91.1 MCH 29.5 MCHC 32.4 RDW 13.1 Plt Count 242 MPV 7.4 L Absolute Neuts (auto) 11.3 H Neutrophils % 83.7 H Lymphocytes % 8.3 Monocytes % 6.1 Eosinophils % 1.3 Basophils % 0.6 Nucleated RBC % 0 Sodium Potassium Chloride Carbon Dioxide Anion Gap BUN Creatinine Creat Clearance w eGFR POC Glucometer 152 200 Random Glucose Calcium Total Bilirubin AST ALT Alkaline Phosphatase Total Protein Albumin Urine Color Urine Appearance Urine pH Ur Specific [place] Urine Protein Urine Glucose (UA) Urine Ketones Urine Blood Urine Nitrite Urine Bilirubin Urine Urobilinogen Ur Leukocyte Esterase RPR Titer 06/03/18 06/03/18 06/03/18 08:50 08:50 16:39 WBC 8.8 RBC 3.64 L Hgb 11.0 L Hct 33.8 L MCV 92.8 MCH 30.2 MCHC 32.6 RDW 13.2 Plt Count 255 MPV 7.5 Absolute Neuts (auto) 7.1 Neutrophils % 80.5 Lymphocytes % 10.1 D Monocytes % 6.9 Eosinophils % 1.7 Basophils % 0.8 Nucleated RBC % 0 Sodium Potassium Chloride Carbon Dioxide Anion Gap BUN Creatinine Creat Clearance w eGFR POC Glucometer 126 Random Glucose Calcium Total Bilirubin 0.6 AST ALT Alkaline Phosphatase Total Protein Albumin Urine Color Urine Appearance Urine pH Ur Specific [place] Urine Protein Urine Glucose (UA) Urine Ketones Urine Blood Urine Nitrite Urine Bilirubin Urine Urobilinogen Ur Leukocyte Esterase RPR Titer 06/04/18 06/04/18 06/05/18 05:52 16:23 05:46 WBC RBC Hgb Hct MCV MCH MCHC RDW Plt Count MPV Absolute Neuts (auto) Neutrophils % Lymphocytes % Monocytes % Eosinophils % Basophils % Nucleated RBC % Sodium Potassium Chloride Carbon Dioxide Anion Gap BUN Creatinine Creat Clearance w eGFR POC Glucometer 114 119 101 Random Glucose Calcium Total Bilirubin AST ALT Alkaline Phosphatase Total Protein Albumin Urine Color Urine Appearance Urine pH Ur Specific [place] Urine Protein Urine Glucose (UA) Urine Ketones Urine Blood Urine Nitrite Urine Bilirubin Urine Urobilinogen Ur Leukocyte Esterase RPR Titer Labs reviewed - Treatment Hospital Course: Detox Protocol Followed, Detoxed Safely, Responded well, Discharged Condition Good, Rehab Referral Accepted - Medication Discharge Medications: Ambulatory Orders Albuterol Sulfate Inhaler - [Ventolin Hfa Inhaler -] 1 - 2 inh PO Q4H PRN Atorvastatin Ca [Lipitor] 40 mg PO HS 05/31/18 Clonidine HCl 0.2 mg PO BID 05/31/18 Duloxetine HCl 40 mg PO DAILY 05/31/18 Fluticasone/Salmeterol [Advair 250-50 Diskus] 1 each IH BID 05/31/18 Gabapentin 900 mg PO DAILY 05/31/18 Gabapentin [Neurontin] 1,500 mg PO HS 05/31/18 Losartan/Hydrochlorothiazide [Losartan-Hctz 100-25 mg Tab] 1 each PO DAILY 05/31 Metformin HCl [Glucophage] 500 mg PO BID 05/31/18 Montelukast Na [Singulair -] 10 mg PO HS 05/31/18 Omeprazole 20 mg PO DAILY 05/31/18 Paroxetine HCl 20 mg PO DAILY 05/31/18 Ranitidine [Zantac -] 150 mg PO BID 05/31/18 Zolpidem Tartrate 10 mg PO HS 05/31/18 - Diagnosis (1) HLD (hyperlipidemia) Current Visit: Yes Status: Chronic (2) HTN (hypertension) Current Visit: Yes Status: Chronic (3) Type 2 diabetes mellitus with hyperglycemia Current Visit: Yes Status: Chronic (4) Asthma Current Visit: Yes Status: Acute Qualifiers: Asthma severity: moderate Asthma complication type: with acute exacerbation (5) COPD (chronic obstructive pulmonary disease) Current Visit: Yes Status: Chronic Qualifiers: COPD type: unspecified COPD Qualified Code(s): J44.9 - Chronic obstructive pulmonary disease, unspecified (6) Depression Current Visit: Yes Status: Chronic (7) GERD (gastroesophageal reflux disease) Current Visit: Yes Status: Chronic (8) Low back pain Current Visit: Yes Status: Chronic (9) Opioid dependence with withdrawal Current Visit: Yes Status: Acute (10) Uncomplicated sedative, hypnotic or anxiolytic withdrawal Current Visit: Yes Status: Acute (11) PNA (pneumonia) Current Visit: Yes Status: Acute - AMA Did Patient Leave Against Medical Advice: No (Patient accepted to [facility])
[2018-06-05] MEDS: ALBUTEROL SO4 2.5/IPRATROPIUM 0.5 INH SOL 3 ML VIAL.NEB. NEB PRN ×2 (10:59→17:24)
--- NOTE | 2018-06-05 15:58 | HP ---
[facility] Assess/Revision - Admission History Admitted to Rehab from: [facility] Date of Admission to Rehab: 06/05/18 - Vital signs Vital Signs: Vital Signs Period Temp Pulse Resp BP Sys/[place] Pulse Ox Last 24 Hr 96.2 F-100.7 F 63-74 18-18 115-125/59-85 - Findings Detox History & Physical reviewed: Yes Concur with findings: Yes Comments/Additional Findings: PT COMPLETED DETOX TODAY ON . CXR WITH RIGHT BASE ATELECTASIS/INFILTRATE(SEE DETOX NOTE). PT WAS STARTED ON LEVAQUIN 500 MG PO DAILY #10 FROM DETOX. Inpatient Rehab Admission - Initial Determination Are CD services needed?: Yes Free of communicable disease: Yes Not in need of hospitalization: Yes - Rehab Admission Criteria Patient is meeting Inpatient Rehab admission criteria:: Yes
[2018-06-05] MEDS: hydrOXYzine PAMOATE 25 MG CAPSULE (FP) PO PRN ×2 (17:37→23:29)
[2018-06-05] MEDS: ZOLPIDEM TARTRATE 5 MG TABLET PO PRN (21:26)
[2018-06-05] MEDS: ATORVASTATIN CA 40 MG TABLET (FP) PO SCH (21:26)
[2018-06-05] MEDS: THIAMINE HCL 100 MG TABLET (FP) PO SCH (21:26)
[2018-06-05] MEDS: MONTELUKAST NA 10 MG TABLET PO SCH (21:26)
[2018-06-06] MEDS: guaiFENesin/D-METHORPHAN HB 10 ML UNIT-DOSE CUPS PO PRN ×3 (06:35→21:22)
[2018-06-06] MEDS: hydrOXYzine PAMOATE 25 MG CAPSULE (FP) PO PRN ×2 (06:35→15:35)
[2018-06-06] MEDS: metFORMIN HCL 500 MG TABLET (FP) PO SCH ×2 (06:35→16:28)
[2018-06-06] MEDS: PATIENT'S OWN MEDICATION (NON-FORMULARY) (Omeprazole 20 MG) PO SCH (06:35)
[2018-06-06] MEDS: ALBUTEROL SO4 2.5/IPRATROPIUM 0.5 INH SOL 3 ML VIAL.NEB. NEB PRN ×2 (10:00→19:32)
[2018-06-06] MEDS: RANITIDINE HCL 150 MG TABLET (FP) PO SCH ×2 (10:22→21:19)
[2018-06-06] MEDS: cloNIDine HCL 0.1 MG TABLET PO SCH ×2 (10:23→21:18)
[2018-06-06] MEDS: DULoxetine HCL 20 MG CAPSULE.DR (FP) PO SCH (10:23)
[2018-06-06] MEDS: GABAPENTIN 300 MG CAPSULE (FP) PO SCH ×2 (10:23→21:18)
[2018-06-06] MEDS: PRENATAL VITAMINS W/ FOLIC ACID TABLET (FP) PO SCH (10:23)
[2018-06-06] MEDS: ALBUTEROL SO4 8 GM HFA INHALER IH PRN (10:27)
[2018-06-06] MEDS: PATIENT'S OWN MEDICATION (NON-FORMULARY) (Losartan/Hydrochlorothiazide [Losartan-Hctz 100- PO SCH (10:50)
[2018-06-06] MEDS: NICOTINE 14 MG/24 HOURS TOPICAL PATCH TD SCH (11:16)
[2018-06-06 20:26] VITALS: BP 157/99; PULSE 85; TEMP 98.4
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
[2018-06-06] MEDS: MONTELUKAST NA 10 MG TABLET PO SCH (21:18)
[2018-06-06] MEDS: ATORVASTATIN CA 40 MG TABLET (FP) PO SCH (21:18)
[2018-06-06] MEDS: THIAMINE HCL 100 MG TABLET (FP) PO SCH (21:19)
[2018-06-06] MEDS: ZOLPIDEM TARTRATE 5 MG TABLET PO PRN (21:58)
--- NOTE | 2018-06-06 23:24 | DS ---
[facility] Detox Discharge Summary Admission Date: 05/31/18 Discharge Date: 06/06/18 - History Additional Comments: Patient reports that he has immediate personal problem to take care of and he is leaving against medical advice. Pertinent Past History: HTN, GERD, COPD, Hyperlipidemia, depression, Hep C, asthma, Opioid and alcohol withdrawal symptoms - Physical Exam Results Vital Signs: Vital Signs Temperature 98.4 F 06/06/18 20:25 Pulse Rate 85 06/06/18 20:25 Respiratory Rate 18 06/06/18 20:25 Blood Pressure 157/99 06/06/18 20:25 O2 Sat by Pulse Oximetry (%) Laboratory Last Values WBC 8.8 K/mm3 (4.0-10.0) 06/03/18 08:50 RBC 3.64 M/mm3 (4.00-5.60) L 06/03/18 08:50 Hgb 11.0 GM/dL (11.7-16.9) L 06/03/18 08:50 Hct 33.8 % (35.4-49) L 06/03/18 08:50 MCV 92.8 fl (80-96) 06/03/18 08:50 MCH 30.2 pg (25.7-33.7) 06/03/18 08:50 MCHC 32.6 g/dl (32.0-35.9) 06/03/18 08:50 RDW 13.2 % (11.9-15.9) 06/03/18 08:50 Plt Count 255 K/MM3 (134-434) 06/03/18 08:50 MPV 7.5 fl (7.5-11.1) 06/03/18 08:50 Absolute Neuts (auto) 7.1 K/mm3 (1.5-8.0) 06/03/18 08:50 Neutrophils % 80.5 % (42.8-82.8) 06/03/18 08:50 Lymphocytes % 10.1 % (8-40) D 06/03/18 08:50 Monocytes % 6.9 % (3.8-10.2) 06/03/18 08:50 Eosinophils % 1.7 % (0-4.5) 06/03/18 08:50 Basophils % 0.8 % (0-2.0) 06/03/18 08:50 Nucleated RBC % 0 % (0-0) 06/03/18 08:50 Sodium 136 mmol/L (136-145) 06/01/18 08:00 Potassium 4.2 mmol/L (3.5-5.1) 06/01/18 08:00 Chloride 96 mmol/L (98-107) L 06/01/18 08:00 Carbon Dioxide 29 mmol/L (21-32) 06/01/18 08:00 Anion Gap 12 MMOL/L (8-16) 06/01/18 08:00 BUN 13 mg/dL (7-18) 06/01/18 08:00 Creatinine 1.1 mg/dL (0.55-1.3) 06/01/18 08:00 Creat Clearance w eGFR > 60 (>60) 06/01/18 08:00 POC Glucometer 171 UNITS (80-120) 06/06/18 16:27 Random Glucose 90 mg/dL (74-106) 06/01/18 08:00 Calcium 8.1 mg/dL (8.5-10.1) L 06/01/18 08:00 Total Bilirubin 0.6 mg/dL (0.2-1) 06/03/18 08:50 AST 16 U/L (15-37) 06/01/18 08:00 ALT 20 U/L (13-61) 06/01/18 08:00 Alkaline Phosphatase 39 U/L (45-117) L 06/01/18 08:00 Total Protein 6.0 g/dl (6.4-8.2) L 06/01/18 08:00 Albumin 3.4 g/dl (3.4-5.0) 06/01/18 08:00 Urine Color Yellow 06/01/18 09:30 Urine Appearance Slcloudy 06/01/18 09:30 Urine pH 7.0 (5.0-8.0) 06/01/18 09:30 Ur Specific [place] 1.015 (1.010-1.035) 06/01/18 09:30 Urine Protein Negative (NEGATIVE) 06/01/18 09:30 Urine Glucose (UA) Negative (NEGATIVE) 06/01/18 09:30 Urine Ketones Negative (NEGATIVE) 06/01/18 09:30 Urine Blood Negative (NEGATIVE) 06/01/18 09:30 Urine Nitrite Negative (NEGATIVE) 06/01/18 09:30 Urine Bilirubin Negative (<2.0 mg/dL) 06/01/18 09:30 Urine Urobilinogen Negative mg/dL (0.2-1.0) 06/01/18 09:30 Ur Leukocyte Esterase Negative (NEGATIVE) 06/01/18 09:30 RPR Titer Nonreactive (NONREACTIVE) 06/01/18 08:00 Pertinent Admission Physical Exam Findings: Withdrawal symptoms - Medication Discharge Medications: Ambulatory Orders Albuterol Sulfate Inhaler - [Ventolin Hfa Inhaler -] 1 - 2 inh PO Q4H PRN Atorvastatin Ca [Lipitor] 40 mg PO HS 05/31/18 Clonidine HCl 0.2 mg PO BID 05/31/18 Duloxetine HCl 40 mg PO DAILY 05/31/18 Fluticasone/Salmeterol [Advair 250-50 Diskus] 1 each IH BID 05/31/18 Gabapentin 900 mg PO DAILY 05/31/18 Gabapentin [Neurontin] 1,500 mg PO HS 05/31/18 Losartan/Hydrochlorothiazide [Losartan-Hctz 100-25 mg Tab] 1 each PO DAILY 05/31 Metformin HCl [Glucophage] 500 mg PO BID 05/31/18 Montelukast Na [Singulair -] 10 mg PO HS 05/31/18 Omeprazole 20 mg PO DAILY 05/31/18 Paroxetine HCl 20 mg PO DAILY 05/31/18 Ranitidine [Zantac -] 150 mg PO BID 05/31/18 Zolpidem Tartrate 5 mg PO HS 05/31/18 - AMA Did Patient Leave Against Medical Advice: Yes
== END 2018-06-06 10:40 | disposition left against medical advice (07) | DRG 894 ==
LOC: YASAS 12:08 → Y3N 16:30 → Y5N 06-05 12:08
PROVIDERS: ATTEND Psychiatry & Neurology Psychiatry
PROC: HZ2ZZZZ Detoxification Services for Substance Abuse Treatment (ICD-10-PCS; principal; 2018-05-31)
PROC: HZ42ZZZ Group Counseling for Substance Abuse Treatment, Cognitive-Behavioral (ICD-10-PCS; 2018-06-05)
DX: F11.23 Opioid dependence with withdrawal (principal); J18.9 Pneumonia, unspecified organism; J45.901 Unspecified asthma with (acute) exacerbation; F13.230 Sedative, hypnotic or anxiolytic dependence with withdrawal, uncomplicated; F19.24 Other psychoactive substance dependence with psychoactive substance-induced mood disorder; F32.9 Major depressive disorder, single episode, unspecified; I10 Essential (primary) hypertension; J44.9 Chronic obstructive pulmonary disease, unspecified; E80.7 Disorder of bilirubin metabolism, unspecified; D72.829 Elevated white blood cell count, unspecified; B18.2 Chronic viral hepatitis C; G47.00 Insomnia, unspecified; E78.5 Hyperlipidemia, unspecified; M54.5 Low back pain; G89.29 Other chronic pain; E11.65 Type 2 diabetes mellitus with hyperglycemia; Z79.84 Long term (current) use of oral hypoglycemic drugs; W50.0XXA Accidental hit or strike by another person, initial encounter; Y93.89 Activity, other specified; Y92.238 Other place in hospital as the place of occurrence of the external cause
CPT/HCPCS: 36415; 71046-TC-FY; 80053; 81003; 82247; 82962; 85025; 85027; 86593; 87086; 93005; 93010; 94640; J0735